=== PATIENT | male | born 1995 | race Caucasian/White ===

== ENCOUNTER 2018-11-14 13:42 | Emergency (ER) | payer OTHER ==
[2018-11-14 13:50] VITALS: RESP 18
--- NOTE | 2018-11-14 14:11 | ED ---
Back Pain HPI - General Chief Complaint: Back Pain/Injury Stated Complaint: [facility]-Back Pain Time Seen by Provider: 11/14/18 14:01 Source: patient Limitations: no limitations - History of Present Illness Initial Comments: Patient is a 22-year-old male presenting to the ER with complaints of thoracic pain 2 days. Patient states he was working on a car 2 days ago and went to stop off the ramp and was higher than he thought off the ground, resulting and a larger step down. Patient states he did not fall but felt a pain as left side of his thoracic area. Patient denies any previous injuries to his back. Patient states yesterday his pain was more but today feels slightly better. Patient states he is displaying around because it hurts to bend forward or backward. Patient has not tried anything to make the pain go away. Patient denies numbness/tingling into the lower extremities. Patient denies any significant past medical history. No other complaints at this time. - Related Data Previous Rx's Medication Instructions Recorded Cyclobenzaprine [Flexeril] 5 mg PO HS PRN #10 tablet 11/14/18 Allergies Allergy/AdvReac Type Severity Reaction Status Date / Time No Known Allergies Allergy Verified 11/14/18 13:50 Review of Systems ROS Statement: Those systems with pertinent positive or pertinent negative responses have been documented in the HPI. ROS Other: All systems not noted in ROS Statement are negative. Past Medical History Past Medical History: No Reported History History of Any Multi-Drug Resistant Organisms: None Reported Past Surgical History: No Surgical Hx Reported Past Psychological History: No Psychological Hx Reported Smoking Status: Current every day smoker Past Alcohol Use History: Occasional Past Drug Use History: None Reported General Exam - General Exam Comments Initial Comments: GENERAL: Well-appearing, well-nourished and in no acute distress. HEAD: Atraumatic, normocephalic. EYES: Pupils equal round and reactive to light, extraocular movements intact, sclera anicteric, conjunctiva are normal. ENT: TMs normal, nares patent, oropharynx clear without exudates. Moist mucous membranes. NECK: Normal range of motion, supple without lymphadenopathy or JVD. LUNGS: Breath sounds clear to auscultation bilaterally and equal. No wheezes rales or rhonchi. HEART: Regular rate and rhythm without murmurs, rubs or gallops. ABDOMEN: Soft, nontender, normoactive bowel sounds. No guarding, no rebound. No masses appreciated. : Deferred EXTREMITIES: Normal range of motion, no pitting or edema. No clubbing or cyanosis. Patient has full trunk range of motion, pain at end range of trunk flexion. Patient has full shoulder range of motion. Pain with palpation on the left paraspinal thoracic area. Muscle spasm present. No tenderness on the spinous processes. NEUROLOGICAL: Cranial nerves II through XII grossly intact. Normal speech, normal gait. PSYCH: Normal mood, normal affect. SKIN: Warm, Dry, normal turgor, no rashes or lesions noted. Limitations: no limitations Course Vital Signs 11/14/18 11/14/18 13:48 14:42 Temperature 98.5 F 97.0 F L Pulse Rate 90 74 Respiratory 18 18 Rate Blood Pressure 125/76 117/75 O2 Sat by Pulse 99 100 Oximetry Medical Decision Making - Medical Decision Making Patient is a 22-year-old male complaining of thoracic back pain 2 days after he took a large stepped down off a ramp. Patient denies falling. X-rays of tho racic spine show no acute fractures or dislocations. Patient be discharged home with muscle relaxer and Motrin. Patient was okay with this plan. Disposition Clinical Impression: Thoracic back pain Disposition: HOME SELF-CARE Condition: Stable Instructions (If sedation given, give patient instructions): Thoracic Pain (ED) Additional Instructions: Please return to the Emergency Department if symptoms worsen or any other concerns. Prescriptions: Cyclobenzaprine [Flexeril] 5 mg PO HS PRN #10 tablet PRN Reason: Muscle Spasm Is patient prescribed a controlled substance at d/c from ED?: No Referrals: None,Stated [Primary Care Provider] - 1-2 days
--- NOTE | 2018-11-14 14:41 | XR ---
EXAMINATION TYPE: XR thoracic spine complete DATE OF EXAM: 11/14/2018 COMPARISON: NONE HISTORY: Pain Alignment is anatomic. There is no compression deformities. Vertebral body height and disc interspa connie are maintained. IMPRESSION: 1. No acute abnormality.
[2018-11-14 14:46] VITALS: BP 117/75; PULSE 74; TEMP 97
== END 2018-11-14 15:00 | disposition home or self-care (01) ==
LOC: EC 13:42
DX: M54.6 Pain in thoracic spine (principal); F17.200 Nicotine dependence, unspecified, uncomplicated; Y99.0 Civilian activity done for income or pay
CPT/HCPCS: 72072; 99283

== ENCOUNTER 2020-08-19 20:57 | Emergency (ER) | payer BC ==
[2020-08-19 21:03] VITALS: BP 144/98; PULSE 107; RESP 18; TEMP 98.6
[2020-08-19] MEDS ORDERED: LIDOCAINE 1% INJ 10MG/ML (20 ML MDV) SQ ONE (21:39)
[2020-08-19] MEDS ORDERED: BACITRACIN OINT 1 EACH PACKET TOPICAL ONE (21:39)
[2020-08-19] MEDS ORDERED: IBUPROFEN 600 MG TAB PO STA (21:39)
--- NOTE | 2020-08-19 22:21 | ED ---
Wound/Laceration HPI - General Chief Complaint: Wound/Laceration Stated Complaint: Hand injury Time Seen by Provider: 08/19/20 21:09 Source: patient Mode of arrival: ambulatory Limitations: no limitations - History of Present Illness Initial Comments: 24-year-old male patient presents to the emergency department today for evaluation of injury to the left hand. Patient states he was cutting a zip tie when the knife slipped and punctured his hand. Denies any numbness or tingling to the fingers. Denies any difficulty with range of motion. States he has received a tetanus vaccine within the last couple of years. Denies any significant pain to the area. Has not taken anything for discomfort. Denies any other injuries. - Related Data Previous Rx's Medication Instructions Recorded Cyclobenzaprine [Flexeril] 5 mg PO HS PRN #10 tablet 11/14/18 Cephalexin [Keflex] 500 mg PO BID #14 cap 08/19/20 Allergies Allergy/AdvReac Type Severity Reaction Status Date / Time diphenhydramine Allergy Unknown Verified 08/19/20 21:03 [From Benadryl] Childhood Review of Systems ROS Statement: Those systems with pertinent positive or pertinent negative responses have been documented in the HPI. ROS Other: All systems not noted in ROS Statement are negative. Past Medical History Past Medical History: No Reported History History of Any Multi-Drug Resistant Organisms: None Reported Past Surgical History: No Surgical Hx Reported Past Psychological History: No Psychological Hx Reported Smoking Status: Current every day smoker Past Alcohol Use History: Occasional Past Drug Use History: None Reported General Exam Limitations: no limitations General appearance: alert, in no apparent distress Respiratory exam: Present: normal lung sounds bilaterally. Absent: respiratory distress, wheezes, rales, rhonchi, stridor Cardiovascular Exam: Present: regular rate, normal rhythm, normal heart sounds. Absent: systolic murmur, diastolic murmur, rubs, gallop, clicks Extremities exam: Present: full ROM, normal capillary refill, other (There is 2 cm laceration noted to the dorsal aspect of the left hand over the webbing between the thumb and index finger. No active bleeding noted. Skin to the left hand is pink, warm, dry. Cap refill less than 3 seconds. Radial pulses 2+. She has good range of motion with him without resistanc). Absent: normal inspection, tenderness, pedal edema, joint swelling, calf tenderness Neurological exam: Present: alert, oriented X3, CN II-XII intact Psychiatric exam: Present: normal affect, normal mood Skin exam: Present: warm, dry, intact, normal color. Absent: rash Course Vital Signs 08/19/20 21:01 Temperature 98.6 F Pulse Rate 107 H Respiratory 18 Rate Blood Pressure 144/98 O2 Sat by Pulse 100 Oximetry Procedures - Laceration Laceration #1 Consent Obtained: verbal consent Indication: laceration Site: hand (Left hand) Size (cm): 2 Description: linear Depth: simple, single layer Anesthetic Used: lidocaine 1% Anesthesia Technique: local infiltration Amount (mls): 4 Pre-repair: irrigated extensively Type of Sutures: nylon Size of Sutures: 5-0 Number of Sutures: 2 Technique: simple, interrupted Patient Tolerated Procedure: well, no complications Medical Decision Making - Medical Decision Making 24-year-old male patient presented to the emergency department today for evaluation of wound to the left hand. Physical examination did reveal a 2 cm laceration to the webbing between the thumb and index finger on the left dorsal hand. Area was cleansed. Neurovascular status is intact. Repaired as documented. Dressing applied. He is educated regarding signs or symptoms of infection and wound care. Instructed to return in 7 days for suture removal. Return parameters were discussed in detail. He verbalizes understanding and agrees with this plan. My attending is Dr. Martell. Disposition Clinical Impression: Laceration of left hand Disposition: HOME SELF-CARE Condition: Good Instructions (If sedation given, give patient instructions): Care For Your Stitches (ED), Laceration (ED) Additional Instructions: Take medications as directed. Take, Motrin for pain control. Monitor for signs or symptoms of infection. Return in 7 days to have the stitches removed. Return for any other new, worsening, or concerning symptoms. Prescriptions: Cephalexin [Keflex] 500 mg PO BID #14 cap Is patient prescribed a controlled substance at d/c from ED?: No Referrals: Rylnad Avendano MD [Primary Care Provider] - 1-2 days Time of Disposition: 22:20
== END 2020-08-19 22:25 | disposition home or self-care (01) ==
LOC: EC 20:57
DX: S61.412A Laceration without foreign body of left hand, initial encounter (principal); F17.200 Nicotine dependence, unspecified, uncomplicated; Z88.8 Allergy status to other drugs, medicaments and biological substances; W26.0XXA Contact with knife, initial encounter; Y93.89 Activity, other specified
CPT/HCPCS: 12001; 99282; J2001